=== PATIENT | female | born 1970 | race Two or more races ===

== ENCOUNTER 2018-11-02 17:28 | Emergency (ER) | payer SELFPAY ==
[~2018-11-02] VITALS: Ht 162.6 cm; Wt 83.9 kg
[2018-11-02 19:45] LABS: BASO % 0 % (0-3); EOS % 1 % (0-3); HEMATOCRIT 47.6 % (36.0-47.0); HEMOGLOBIN 16.3 g/dL (12.0-15.5); LYMPH # 0.9 x10^3/uL (1.0-4.8); LYMPH % 19 % (24-48); MEAN CORPUSCULAR HEMOGLOBIN 31 pg (25-35); MEAN CORPUSCULAR HGB CONC 34 g/dL (31-37); MEAN CORPUSCULAR VOLUME 91 fL (79-100); MONO # 0.4 x10^3/uL (0.0-1.1); MONO % 8 % (0-9); NEUT # 3.6 x10^3uL (1.8-7.7); NEUT % 73 % (31-73); PLATELET COUNT 134 x10^3/uL (140-400); RED BLOOD COUNT 5.24 x10^6/uL (3.50-5.40); RED CELL DISTRIBUTION WIDTH 12.7 % (11.5-14.5); WHITE BLOOD COUNT 4.9 x10^3/uL (4.0-11.0)
[2018-11-02 19:46] LABS: BILIRUBIN,URINE SMALL (NEG); CLARITY,URINE CLEAR; COLOR,URINE AMBER; NITRITE,URINE NEGATIVE (NEG); PROTEIN,URINE 30 mg/dL (NEG-TRACE); UROBILINOGEN,URINE 0.2 mg/dL (0.2 mg/dL)
[2018-11-02 19:51] LABS: AMORPHOUS SEDIMENT,UR PRESENT /HPF; BACTERIA,URINE 0 /HPF (0-FEW); RBC,URINE 0 /HPF (0-2); SQUAMOUS EPITHELIAL CELL,UR FEW /LPF; WBC,URINE RARE /HPF (0-4)
[2018-11-02] MEDS: IV NORMAL SALINE 1000ML BAG 1,000 ML IV ONE ×2 (19:51→20:34)
[2018-11-02] MEDS: ONDANSETRON PF 4 MG/2 ML VIAL. IV ONE (19:51)
[2018-11-02 20:09] LABS: CALCIUM 9.8 mg/dL (8.5-10.1); CREATININE 0.9 mg/dL (0.6-1.0); GFR 67.1; POTASSIUM 3.9 mmol/L (3.5-5.1)
[2018-11-02 20:15] LABS: ALBUMIN 4.1 g/dL (3.4-5.0); TOTAL BILIRUBIN 0.4 mg/dL (0.2-1.0); TOTAL PROTEIN 8.1 g/dL (6.4-8.2)
[2018-11-02] MEDS ORDERED: PROM25TA10 PO (21:32)
[2018-11-02] MEDS ORDERED: ONDA4TAB7 PO (21:32)
--- NOTE | 2018-11-02 21:37 | PHYS DOC ---
Past Medical History Past Medical History: Seizure Past Surgical History: , Hysterectomy Additional Past Surgical Histo: 3 Alcohol Use: None Drug Use: None Adult General Chief Complaint Chief Complaint: DIARRHEA HPI HPI Patient is a 48 year old [f__sex] who presents with [] Review of Systems Review of Systems Constitutional: Denies fever or chills [] Eyes: Denies change in visual acuity, redness, or eye pain [] HENT: Denies nasal congestion or sore throat [] Respiratory: Denies cough or shortness of breath [] Cardiovascular: No additional information not addressed in HPI [] GI: Denies abdominal pain, nausea, vomiting, bloody stools or diarrhea [] : Denies dysuria or hematuria [] Musculoskeletal: Denies back pain or joint pain [] Integument: Denies rash or skin lesions [] Neurologic: Denies headache, focal weakness or sensory changes [] Endocrine: Denies polyuria or polydipsia [] All other systems were reviewed and found to be within normal limits, except as documented in this note. Current Medications Current Medications Current Medications Medications (Trade) Dose Ordered Sig/Angelina Start Time Stop Time Status Last Admin Dose Admin Ondansetron HCl (Zofran) 4 mg 1X ONCE 11/02/18 19:45 11/02/18 19:54 DC 11/02/18 19:51 4 MG Sodium Chloride 1,000 ml @ 1,000 mls/hr 1X ONCE 11/02/18 20:30 11/02/18 21:29 11/02/18 20:34 1,000 MLS/HR Allergies Allergies Allergies Coded Allergies Type Severity Reaction Last Updated Verified No Known Drug Allergies 11/02/18 No Physical Exam Physical Exam Constitutional: Well developed, well nourished, no acute distress, non-toxic appearance. [] HENT: Normocephalic, atraumatic, bilateral external ears normal, oropharynx moist, no oral exudates, nose normal. [] Eyes: PERRLA, EOMI, conjunctiva normal, no discharge. [] Neck: Normal range of motion, no tenderness, supple, no stridor. [] Cardiovascular:Heart rate regular rhythm, no murmur [] Lungs & Thorax: Bilateral breath sounds clear to auscultation [] Abdomen: Bowel sounds normal, soft, no tenderness, no masses, no pulsatile masses. [] Skin: Warm, dry, no erythema, no rash. [] Back: No tenderness, no CVA tenderness. [] Extremities: No tenderness, no cyanosis, no clubbing, ROM intact, no edema. [] Neurologic: Alert and oriented X 3, normal motor function, normal sensory function, no focal deficits noted. [] Psychologic: Affect normal, judgement normal, mood normal. [] Current Patient Data Vital Signs Vital Signs Date Time Temp Pulse Resp B/P (MAP) Pulse Ox O2 Delivery O2 Flow Rate FiO2 11/02/18 20:36 94 16 124/70 (88) 97 Room Air 11/02/18 18:37 98.5 98.5 Lab Values Laboratory Tests Test 11/02/18 18:50 11/02/18 18:54 Urine Collection Type Unknown Urine Color Y[place] Urine Clarity Clear Urine pH 6.0 Urine Specific [place] >=1.030 Urine Protein 30 mg/dL (NEG-TRACE) Urine Glucose (UA) Negative mg/dL (NEG) Urine Ketones (Stick) Trace mg/dL (NEG) Urine Blood Negative (NEG) Urine Nitrite Negative (NEG) Urine Bilirubin Small (NEG) Urine Urobilinogen Dipstick 0.2 mg/dL (0.2 mg/dL) Urine Leukocyte Esterase Negative (NEG) Urine RBC 0 /HPF (0-2) Urine WBC Rare /HPF (0-4) Urine Squamous Epithelial Cells Few /LPF Urine Amorphous Sediment Present /HPF Urine Bacteria 0 /HPF (0-FEW) Urine Mucus Slight /LPF White Blood Count 4.9 x10^3/uL (4.0-11.0) Red Blood Count 5.24 x10^6/uL (3.50-5.40) Hemoglobin 16.3 g/dL (12.0-15.5) H Hematocrit 47.6 % (36.0-47.0) H Mean Corpuscular Volume 91 fL (79-100) Mean Corpuscular Hemoglobin 31 pg (25-35) Mean Corpuscular Hemoglobin Concent 34 g/dL (31-37) Red Cell Distribution Width 12.7 % (11.5-14.5) Platelet Count 134 x10^3/uL (140-400) L Neutrophils (%) (Auto) 73 % (31-73) Lymphocytes (%) (Auto) 19 % (24-48) L Monocytes (%) (Auto) 8 % (0-9) Eosinophils (%) (Auto) 1 % (0-3) Basophils (%) (Auto) 0 % (0-3) Neutrophils # (Auto) 3.6 x10^3uL (1.8-7.7) Lymphocytes # (Auto) 0.9 x10^3/uL (1.0-4.8) L Monocytes # (Auto) 0.4 x10^3/uL (0.0-1.1) Eosinophils # (Auto) 0.0 x10^3/uL (0.0-0.7) Basophils # (Auto) 0.0 x10^3/uL (0.0-0.2) Sodium Level 140 mmol/L (136-145) Potassium Level 3.9 mmol/L (3.5-5.1) Chloride Level 104 mmol/L (98-107) Carbon Dioxide Level 23 mmol/L (21-32) Anion Gap 13 (6-14) Blood Urea Nitrogen 19 mg/dL (7-20) Creatinine 0.9 mg/dL (0.6-1.0) Estimated GFR (Cockcroft-Gault) 67.1 BUN/Creatinine Ratio 21 (6-20) H Glucose Level 100 mg/dL (70-99) H Calcium Level 9.8 mg/dL (8.5-10.1) Total Bilirubin 0.4 mg/dL (0.2-1.0) Aspartate Amino Transferase (AST) 24 U/L (15-37) Alanine Aminotransferase (ALT) 54 U/L (14-59) Alkaline Phosphatase 104 U/L (46-116) Total Protein 8.1 g/dL (6.4-8.2) Albumin 4.1 g/dL (3.4-5.0) Albumin/Globulin Ratio 1.0 (1.0-1.7) Laboratory Tests 11/02/18 18:54 Laboratory Tests 11/02/18 18:54 EKG EKG [] Radiology/Procedures Radiology/Procedures [] Course & Med Decision Making Course & Med Decision Making Pertinent Labs and Imaging studies reviewed. (See chart for details) [] Dragon Disclaimer Dragon Disclaimer This electronic medical record was generated, in whole or in part, using a voice recognition dictation system. Departure Departure Impression: Primary Impression: Nausea & vomiting Additional Impression: Diarrhea Disposition: 01 HOME, SELF-CARE Condition: STABLE Referrals: DOMI CONNOLLY FNP (PCP) Patient Instructions: Diarrhea, Nausea and Vomiting Additional Instructions: Take the medication to control your nausea. Increase fluids and rest. Follow-up with your primary care provider in 3 days if not improving or return to the emergency department if worsening. Scripts Promethazine Hcl (PROMETHAZINE HCL) 25 Mg Tablet 1 TAB PO PRN Q6HRS for nausea, #20 TAB Prov: MIN RUIZ APRN 11/02/18 Ondansetron Hcl (ZOFRAN) 4 Mg Tablet 1 TAB PO Q6HRS for nausea, #20 TAB Prov: MIN RUIZ APRN 11/02/18 Problem Qualifiers MIN RUIZ APRN Nov 02, 2018 21:37
[2018-11-02 22:10] VITALS: BP 124/70
--- NOTE | 2018-11-02 23:33 | RAD ---
Examination: ABDOMEN LTD History: RUQ PAIN Comparison/Correlation: 09/19/2018 CT abdomen and pelvis without contrast Findings: Right upper quadrant ultrasound exam was performed. Liver is unremarkable. Gallbladder is normal. There is no cholelithiasis or pericholecystic fluid. Portal venous flow is normal. Proximal pancreas is normal. Distal pancreas is obscured by bowel gas. Right kidney measures 10.16 x 5 cm. No right hydronephrosis. Right renal contour is unremarkable. Right renal echotexture is normal. Inferior vena cava is unremarkable. Impression: Normal right upper quadrant ultrasound exam. No suspicious process. Electronically signed by: Corey Mills MD (11/02/2018 11:29 PM) [facility]
== END 2018-11-02 22:11 | disposition home or self-care (01) ==
LOC: ER 17:28
DX: R19.7 Diarrhea, unspecified (principal); R11.2 Nausea with vomiting, unspecified; Z90.710 Acquired absence of both cervix and uterus; Z98.890 Other specified postprocedural states
CPT/HCPCS: 36415; 76705; 80053; 81001; 81025; 85025; 96361; 96374; J2405; J7030; 99284-25

== ENCOUNTER 2019-08-18 17:18 | Emergency (ER) | payer SELFPAY ==
[~2019-08-18] VITALS: Ht 162.6 cm; Wt 83.9 kg
[~2019-08-18 17:18] MED LIST: ONDA4TAB7 PO; PROM25TA10 PO
[2019-08-18 17:34] VITALS: BP 125/64
[2019-08-18] MEDS ORDERED: ORPHENADRINE CITRATE 60 MG/2 ML VIAL. IM ONE (17:45)
[2019-08-18] MEDS ORDERED: DEXAMETHASONE SOD PHOS 20 MG/5 ML VIAL. PO ONE (17:45)
[2019-08-18 17:55] LABS: BILIRUBIN,URINE NEGATIVE (NEG); CLARITY,URINE CLEAR; COLOR,URINE YELLOW; NITRITE,URINE NEGATIVE (NEG); PROTEIN,URINE NEGATIVE (NEG-TRACE)
[2019-08-18 18:02] LABS: BACTERIA,URINE 0 /HPF (0-FEW); RBC,URINE OCC /HPF (0-2); SQUAMOUS EPITHELIAL CELL,UR FEW /LPF
[2019-08-18] MEDS ORDERED: CYCL10TA2 PO (18:23)
[2019-08-18] MEDS ORDERED: NAPR-514 PO (18:23)
--- NOTE | 2019-08-18 18:23 | PHYS DOC ---
Past Medical History Past Medical History: Seizure Past Surgical History: , Hysterectomy Additional Past Surgical Histo: 3 Alcohol Use: None Drug Use: None Adult General Chief Complaint Chief Complaint: LOWER EXT PAIN HPI HPI Patient is a 48 year old female, accompanied by her and, who presents to the emergency department with complaints of left-sided low back pain that radiates into her left leg for the last 4 days. Patient states that the pain increases with movement of her leg. She denies any recent heavy lifting or known injury to her leg. She currently rates pain as 7 out of 10 on the pain scale, she denies any alleviating factors, the pain increases with movement. Patient also reports complaints of dysuria and increased urinary frequency for the last few days. She denies any hematuria, incontinence, irregular vaginal discharge, vaginal odor, or vaginal bleeding. Patient denies any abdominal pain, saddle anesthesia, or loss of bowel/bladder control. Review of Systems Review of Systems Constitutional: Denies fever or chills [] Eyes: Denies redness, or eye pain [] HENT: Denies nasal congestion or sore throat [] Respiratory: Denies cough or shortness of breath [] Cardiovascular: No additional information not addressed in HPI [] GI: Denies abdominal pain, nausea, vomiting, or diarrhea [] : See history of present illness Musculoskeletal: See history of present illness Integument: Denies rash or skin lesions [] Neurologic: Denies headache, focal weakness or sensory changes [] Complete systems were reviewed and found to be within normal limits, except as documented in this note. Current Medications Current Medications Current Medications Medications (Trade) Dose Ordered Sig/[facility] Start Time Stop Time Status Last Admin Dose Admin Dexamethasone Sodium Phosphate (Decadron) 10 mg 1X ONCE 08/18/19 17:45 08/18/19 17:46 DC 08/18/19 17:53 10 MG Orphenadrine Citrate (Norflex) 60 mg 1X ONCE 08/18/19 17:45 08/18/19 17:46 DC 08/18/19 17:53 60 MG Allergies Allergies Allergies Coded Allergies Type Severity Reaction Last Updated Verified No Known Drug Allergies 11/02/18 No Physical Exam Physical Exam Constitutional: Well developed, well nourished, no acute distress, non-toxic appearance. [] HENT: Normocephalic, atraumatic, bilateral external ears normal, nose normal. [] Eyes: PERRLA, EOMI, conjunctiva normal, no discharge. [] Neck: Normal range of motion, no stridor. [] Cardiovascular:Heart rate regular rhythm Lungs & Thorax: Respirations even and unlabored, no retractions, no respiratory distress Abdomen: soft, no tenderness Skin: Warm, dry, no erythema, no rash. [] Back: No CVA tenderness; left lumbar paraspinal tenderness to palpation, no bony tenderness; increased low back pain with straight leg lift of left leg Extremities: No cyanosis, no clubbing, ROM intact, no edema. [] Neurologic: Alert and oriented X 3, no focal deficits noted. [] Psychologic: Affect normal, judgement normal, mood normal. [] Current Patient Data Vital Signs Vital Signs Date Time Temp Pulse Resp B/P (MAP) Pulse Ox O2 Delivery O2 Flow Rate FiO2 08/18/19 17:34 99.6 82 18 125/64 (84) 95 Room Air 99.6 Lab Values Laboratory Tests Test 08/18/19 17:40 Urine Collection Type Unknown Urine Color Yellow Urine Clarity Clear Urine pH 6.0 Urine Specific [place] 1.015 Urine Protein Negative mg/dL (NEG-TRACE) Urine Glucose (UA) Negative mg/dL (NEG) Urine Ketones (Stick) Negative mg/dL (NEG) Urine Blood Negative (NEG) Urine Nitrite Negative (NEG) Urine Bilirubin Negative (NEG) Urine Urobilinogen Dipstick 1.0 mg/dL (0.2 mg/dL) Urine Leukocyte Esterase Small (NEG) Urine RBC Occ /HPF (0-2) Urine WBC 1-4 /HPF (0-4) Urine Squamous Epithelial Cells Few /LPF Urine Bacteria 0 /HPF (0-FEW) Urine Mucus Mod /LPF EKG EKG [] Radiology/Procedures Radiology/Procedures [] Course & Med Decision Making Course & Med Decision Making Pertinent Labs and Imaging studies reviewed. (See chart for details) dx: Sided sciatica UA is unremarkable not concerning for urinary tract infection. Physical exam is concerning for left-sided sciatica and low back pain. Patient was given 10 mg of Decadron by mouth and 10 mg of Norflex IM. Prescriptions written for naproxen and Flexeril. Recommend low back stretches. Follow-up with your primary care doctor in 1-2 days. Return to the ER if symptoms worsen. [] Lydia Disclaimer Dragon Disclaimer This electronic medical record was generated, in whole or in part, using a voice recognition dictation system. Departure Departure Impression: Primary Impression: Left-sided low back pain with left-sided sciatica Disposition: HOME, SELF-CARE Condition: STABLE Referrals: REBECCA BURRELL DO (PCP) Patient Instructions: Sciatica with [facility] Additional Instructions: Your urine was negative for any infection today. Fill the prescriptions and use as directed. Apply ice or heat to sore areas as needed for comfort. Follow the back stretches provided. Follow up with primary care doctor in 1-2 days, return to the ER if symptoms worsen. Scripts Cyclobenzaprine Hcl (CYCLOBENZAPRINE HCL) 10 Mg Tablet 1 TAB PO TID PRN for PAIN for 10 Days, #30 TAB 0 Refills Prov: BETTY CABRERA APRN 08/18/19 Naproxen (NAPROXEN) 500 Mg Tablet 1 TAB PO BID PRN for PAIN for 10 Days, #20 TAB 0 Refills Prov: BETTY CABRERA APRN 08/18/19 Problem Qualifiers Primary Impression: Left-sided low back pain with left-sided sciatica Chronicity: acute Qualified Codes: M54.42 - Lumbago with sciatica, left side BETTY CABRERA MARKETING TECH[employer]OLOG[employer] Aug 18, 2019 18:23
== END 2019-08-18 18:36 | disposition home or self-care (01) ==
LOC: ER 17:18
DX: M54.42 Lumbago with sciatica, left side (principal); R35.0 Frequency of micturition; Z90.710 Acquired absence of both cervix and uterus
CPT/HCPCS: 81001; 87086; 96372; 99284; J1100; J2360